=== PATIENT | male | born 1955 | race Caucasian/White ===

== ENCOUNTER → 2016-08-21 | Outpatient (CLI) | payer OTHER ==
[~2016-08-21] MED LIST: IOPAMIDOL (ISOVUE 370) 100 ML BTL IV ONE
--- NOTE | 2016-08-21 12:10 | CT ---
CT Angiography of the Abdomen Clinical Indications: Primary chronic hypertension (I10) Technique: Thinly collimated multidetector helical data were obtained through the abdomen during the arterial phase of contrast enhancement. Images were then transferred to an independent workstation where multiplanar and three-dimensional reconstructions were performed by the interpreting physician. Volume rendering was also performed to better visualize vascular detail. 98 mL of Isovue-370 IV cont rast were administered intravenously by bolus power injection without complication. Dose reduction te chniques were utilized. Findings CT Angiography: The abdominal aorta has a normal contour without aneurysm or dissection. There is ti ny incidental mural thrombus along the left side of the mid abdominal aorta without aneurysm or signi ficant encroachment upon the lumen. There is normal takeoff of the celiac axis and superior mesenteri c artery. A normal single renal artery is seen to the left kidney. There are 3 normal-appearing franco francis supplying the right kidney. The inferior mesenteric artery is normal as well. There is normal b ranching into the common iliac artery bilaterally with a tiny amount of calcified plaque present. CT Abdomen: During arterial phase of imaging, the liver, spleen, bile ducts, pancreas, adrenal gland s and kidneys are normal. Subtle hazy increased density is suspected in the dependent aspect of the g allbladder could be related to sludge or tiny noncalcified gallstones. There is no free fluid or free air. Skeletal system: Vertebral body heights are well-maintained. There is moderate intervertebral disk sp imelda narrowing at L5-S1 with mild facet hypertrophy. Impression: 1. Minimal calcified plaque involving the distal abdominal aorta with small left-sided noncalcified p laque or mural thrombus mid to lower abdominal aorta. 2. Branch vessels off the abdominal aorta are normal in appearance without stenosis or plaque formati on. 3. Single renal artery supplies left kidney with 3 renal arteries supplying the right kidney without stenosis. 4. Possible sludge or tiny noncalcified gallstones within the gallbladder.
== END ==
LOC: CIMAGING 09:22
PROVIDERS: ATTEND Internal Medicine
DX: I70.0 Atherosclerosis of aorta (principal); I10 Essential (primary) hypertension
CPT/HCPCS: 74175-PO; Q9967

== ENCOUNTER 2016-08-30 06:33 | Inpatient (IN) | payer OTHER ==
[2016-08-30] MEDS ORDERED: diphenhydrAMINE 25 MG CAP PO ONE ×2 (06:46→06:59)
[2016-08-30] MEDS ORDERED: FAMOTIDINE 20 MG TAB PO ONE (06:46)
[2016-08-30] MEDS ORDERED: ASPIRIN EC 325 MG TAB PO ONE (06:46)
[2016-08-30] MEDS ORDERED: DIAZEPAM 5 MG TAB PO ONE (06:46)
[2016-08-30] MEDS ORDERED: NS 1,000 ML IV ONE (06:46)
--- NOTE | 2016-08-30 06:55 | CPEKG ---
Heart Rate: 58 RR Interval: 1034 P-R Interval: 172 QRSD Interval: 92 QT Interval: 444 QTC Interval: 437 P [place]: 29 QRS [place]: 20 T Wave [place]: 16 EKG Severity - BORDERLINE ECG - EKG Impression: SINUS RHYTHM EKG Impression: BORDERLINE INFERIOR Q WAVES EKG Impression: MINIMAL ST ELEVATION, ANTERIOR LEADS Electronically Signed By: Chris Silva 30-Aug-2016 09:09:08
[2016-08-30] MEDS ORDERED: DIAZEPAM 5 MG TAB ONE (06:59)
[2016-08-30] MEDS ORDERED: FAMOTIDINE 20 MG TAB ONE (06:59)
[2016-08-30] MEDS ORDERED: ASPIRIN EC 81 MG TAB PO ONE (07:00)
[2016-08-30 07:09] LABS: % IMMATURE GRANULYOCYTES 0.3 % (0.0-1.1); ABSOLUTE IMMATURE GRANULOCYTES 0.01 10^3/uL (0.00-0.10); ADD DIFF? NO; ADD MORPH? NO; ADD SCAN? NO; ATYPICAL LYMPHOCYTE FLAG 10 (0-99); FRAGMENT RBC FLAG 0 (0-99); HEMATOCRIT 46.2 % (40.0-51.0); HEMOGLOBIN 16.5 g/dL (13.7-17.5); LEFT SHIFT FLG 0 (0-99); LIPEMIA HEMOLYSIS FLAG 90 (0-99); MEAN CELL HEMOGLOBIN CONCENTR. 35.7 g/dL (32.4-36.7); MEAN CELL VOLUME 92.4 fL (81.5-99.8); MEAN PLATELET VOLUME 9.9 fL (8.7-11.7); PLATELET CLUMPS FLAG 20 (0-99); PLATELET COUNT 138 10^3/uL (150-400); RED CELL DISTRIBUTION WIDTH 13.2 % (11.5-15.2)
[2016-08-30 07:18] LABS: INR 0.99 (0.83-1.16)
[2016-08-30 07:36] LABS: ANION GAP 11 mEq/L (8-16); CARBON DIOXIDE 22 mEq/l (22-31); CHLORIDE 109 mEq/L (97-110); CHOLESTEROL 188 mg/dL (140-220); GLOMERULAR FILTRATION RATE > 60; GLUCOSE 134 mg/dL (70-100); HIGH DENSITY LIPOPROTEIN 33 mg/dL (40-65); LDL/HDL RATIO 2.67 RATIO (1.00-3.64); LOW DENSITY LIPOPROTEIN 88 mg/dL (80-100); MAGNESIUM 1.9 mg/dL (1.6-2.3); NON-HIGH DENSITY LIPOPROTEIN 155 mg/dL (90-129); POTASSIUM 4.5 mEq/L (3.5-5.2); SODIUM 142 mEq/L (134-144); TRIGLYCERIDE 337 mg/dL (40-150); VERY LOW DENSITY LIPOPROTEINS 67 mg/dL (8-25)
[2016-08-30] MEDS ORDERED: LIDOCAINE 1% 30 ML SDV ONE (08:09)
[2016-08-30] MEDS ORDERED: HEPARIN 10,000 UNIT/10 ML MDV ONE (08:10)
[2016-08-30] MEDS ORDERED: VERAPAMIL 5 MG/2 ML VIAL ONE (08:10)
[2016-08-30] MEDS ORDERED: MIDAZOLAM 2 MG/2 ML VIAL ONE ×2 (08:10→09:00)
[2016-08-30] MEDS ORDERED: fentaNYL 100 MCG/2 ML INJ ONE ×2 (08:10→09:00)
[2016-08-30] MEDS ORDERED: IOPAMIDOL (ISOVUE-370) 150 ML BTL IV ONE (08:11)
--- NOTE | 2016-08-30 08:55 | PDDXCAT ---
Diagnostic Cath Note - . Date: 08/30/16 Union Organizer: Pippa Intervention: None Union Organizer: Dr. Rick Das Indication: CCS Class III angina, high-risk exercise treadmill test with ST depression and predictable chest discomfort suggestive of ischemia. *Procedure Access: left wrist Procedure: left heart catheterization, coronary angiography, left ventriculogram *Materials Left Heart Cath size: 5F, 6F Left Heart Cath materials: 5F JL3.5, 5F JR 4.0, 6F JL4.5, pigtail *Findings-Left Heart Catheterization LM: 6 mm in size. Bifurcates into an LAD and circumflex system. No flow- limiting disease is identified in with BRITTA III flow throughout. LAD: There is a proximal LAD obstruction of 85% with BRITTA III flow. There is also a second 80% lesion proximal to the second diagonal takeoff with BRITTA III flow. The LAD extends to and wraps around the apex. LCX: Large vessel, ~4 mm in size proximally. There is a 100% mid left circumflex and obtuse marginal occlusions with BRITTA 0 flow in both of these lesions. There is evidence of left to left collaterals to the distal PDA. There is ultimately BRITTA III flow to the distal left circumflex and distal obtuse marginal via bridging collateral vessels. RCA: Small, weakly co-dominant vessel, ~2 mm in size. There is a 100% right coronary artery occlusion in the proximal vessel with BRITTA 0 flow. There is evidence of bridging right to right collaterals to the mid and distal vessel ( BRITTA III flow to the distal vessel). There is also a subtotal occlusion of an RV branch. EDP: 31 mmHg LVEF: 65% Wall motion: No wall motion abnormalities were identified on LVG. There is mild mitral regurgitation with pressurized injection in the left ventricle. The visualized portion of the thoracic aorta revealed three sinuses of Valsalva. There was no mildred evidence of aneurysm or dissection. *Summary Complications: None Estimated blood loss: <50ml Closure method: TR Band Assessment: Severe [place] vessel and flow-limiting coronary artery disease including 100% obstruction of a small, codominant right coronary artery with BRITTA 0 flow (BRITTA III flow in the distal vessel via bridging right to right collaterals), 100% mid left circumflex and left circumflex obtuse marginal obstructions with BRITTA 0 flow (BRITTA III flow in the distal vessel via left to left collaterals). There is an 85% stenosis of the proximal LAD and an 80% lesion proximal to the second diagonal takeoff (BRITTA III flow throughout). Coronary artery bypass grafting is recommended with KNAPP to the LAD and vein grafts to the left circumflex, left circumflex obtuse marginal and possibly the distal right coronary artery and first diagonal at the surgeon's discretion. Plan: I have ordered a carotid ultrasound as well as an echocardiogram and chest x-ray to be performed prior to bypass surgery. I discussed these findings at length with the patient and his . He will also have a formal consultation with our surgeon to discuss the risk/benefit of a bypass operation.
--- NOTE | 2016-08-30 13:16 | ECHO ---
[id number] + + [address] : : [place] [address] : : [phone] + Adult Echocardiographic Report + -------+ :Name: Saumya SPAULDINGnemo Date: 08/30/2016 11:21 AM : : Hospital Admission Number: [id number] Locati on: [facility]: :: 1955 Gender: Male Height: 76 in : :Age: 61 yrs Race: WH Weight: 274 lb : :Reason For Study: R/O valvular heart disease pre CABG : : BSA: 2.5 meter s2 : :History: No previous : + -------+ MMode/2D Measurements & Calculations IVSd: 1.2 cm RVDd: 3.5 cm FS: 37.8 % LVOT diam: 2.1 cm LVPWd: 1.2 cm LVIDd: 4.5 cm EDV(Teich): LVOT area: LVIDs: 2.8 cm 94.5 ml 3.5 cm2 ESV(Teich): 30.3 ml EF(Teich): 68.0 % LVLd ap4: 9.6 cm SV(MOD-sp4): EDV(MOD-sp4): 47.0 ml 95.0 ml LVLs ap4: 8.1 cm ESV(MOD-sp4): 48.0 ml EF(MOD-sp4): 49.5 % Normal Measurement Values: + + :LVIDd (3.5-5.7cm) IVSd (0.6-1.1cm) LVPWd (0.6-1.1cm) Aortic Root (2.0-3.7cm)Left Atrium (1.5-4.0cm): :LV Vol(d) (76-115ml) LV Vol(s) (29-48ml) Ejec Fraction (50-65%)PV Ugo (0.6- 1.2m/s) TV Ugo (0.4-1.0m/s) : :MV E Ugo (0.8-1.0m/s)MV A Ugo (0.3-1.0m/s)LVOT Ugo (0.7-1.2m/s) Asc Ao Ugo ( 0.9-1.8m/s) : + + Doppler Measurements & Calculations MV E max ugo: MV V2 max: Ao V2 max: AI max ugo: 75.5 cm/sec 85.8 cm/sec 117.1 cm/sec 238.9 cm/sec MV A max ugo: MV max PG: Ao max PG: AI max P.1 cm/sec 2.9 mmHg 5.5 mmHg 22.8 mmHg MV E/A: 1.0 MV V2 mean: Ao mean PG: AI dec slope: MV dec time: 49.1 cm/sec 3.5 mmHg 98.1 cm/sec2 0.27 sec MV mean PG: Ao V2 mean: AI P1/2t: 1.1 mmHg 85.9 cm/sec 713.3 msec MV V2 VTI: 32.9 cm Ao V2 VTI: 29.3 cm MVA(VTI): 2.9 cm2 ARLET(I,D): 3.2 cm2 LV V1 mean PG: MR max ugo: SV(LVOT): 94.5 ml PA V2 max: 2.6 mmHg 429.2 cm/sec 105.1 cm/sec LV V1 mean: MR max PG: PA max P.4 mmHg 74.0 cm/sec 74.2 mmHg LV V1 VTI: 27.4 cm TR max ugo: 211.1 cm/sec TR max P.8 mmHg Left Ventricle The left ventricle is normal in size and function. Proximal septal thickening is noted. Ejection Fraction = 55-60%. Hypokinetic Basal to Mid Anterolateral, Apical septum, Basal Inferior. Right Ventricle The right ventricle is normal in size and function. Atria The left atrial size is normal. Right atrial size is normal. The interatrial septum is intact with no evidence for an atrial septal defect. Mitral Valve The mitral valve is normal in structure and function. There is no mitral valve stenosis. There is mild mitral regurgitation. Tricuspid Valve The tricuspid valve is normal in structure and function. There is no tricuspid stenosis. There is trace tricuspid regurgitation. Aortic Valve The aortic valve is not well visualized. There is no aortic stenosis. Mild aortic regurgitation. Pulmonic Valve The pulmonic valve is not well visualized. There is no pulmonic valvular stenosis. There is no pulmonic valvular regurgitation. Great Vessels The aortic root is normal size. Pericardium/Pleural There is a fat pad seen. Conclusion A complete two-dimensional transthoracic echocardiogram was performed (2D, M-mode, Doppler and color flow Doppler). The study was technically difficult. The left ventricle is normal in size and function. Proximal septal thickening is noted. Ejection Fraction = 55-60%. Hypokinetic Basal to Mid Anterolateral, Apical septum, Basal Inferior There is mild mitral regurgitation. There is trace tricuspid regurgitation. The aortic valve is not well visualized. Mild aortic regurgitation. Final Reading Physician: Vikas Bustillo signed on 08/30/2016 01:14 PM Ordering Physician: Rick Das Performed By: Estela Armenta
[2016-08-30] MEDS ORDERED: MUPIROCIN 2% 22 GM OINT NS ONE (14:36)
--- NOTE | 2016-08-30 15:10 | US ---
Bilateral Duplex Carotid Sonography Clinical Indications: 61-year-old male presenting preoperatively before CABG. The patient has medica lly-controlled hypertension, and a history of heart stents. Rule out hemodynamically significant sten osis. Technique: The cervical portions of the carotid and vertebral arteries were imaged and interrogated by color and pulsed Doppler. Color and spectral Doppler analysis was performed. Cine clips are stored on PACS. Comparison Study: None. Findings: Right Carotid Artery: The common carotid artery, bulb, and internal and external carotid arteries are well-imaged. There is some minimal atherosclerotic plaque at the level of the carotid bulb. The peak systolic velocity in the internal carotid artery is 59 cm/s cm/s, and the internal carotid artery pe ak diastolic velocity is 29 cm/s. The ICA to CCA systolic and diastolic ratios are normal. The right to left ICA systolic ratio is normal. The external carotid artery is patent. Left Carotid Artery: The common carotid artery, bulb, and the internal and external carotid arteries are well-imaged. There is some minimal atherosclerotic plaque at the level of the carotid bulb. The p eak systolic velocity in the internal carotid artery is 62 cm/s, with a peak diastolic velocity 22 cm /s. The ICA to CCA systolic and diastolic ratios are normal. The external carotid artery is patent. Vertebral Arteries: Antegrade flow is shown by pulsed Doppler of each vertebral artery. The peak sys tolic velocity in the right vertebral artery is 42 cm/s, and in the left vertebral artery is 42 cm/s. Impression: 1. Minimal plaque noted at the level of each carotid bulb; however, there is no sonographic evidence of a hemodynamically significant ICA stenosis. 2. Patent, antegrade vertebral arteries. Measurement of carotid stenosis is based on velocity parameters that correlate the residual internal carotid diameter with [place] Symptomatic Carotid Endarterectomy Trial (NASCET) based stenosis levels.
--- NOTE | 2016-08-30 16:04 | DX ---
PA and lateral chest. Clinical History: pre CABG Comparison Study: None available. Findings: Volume loss in the left lower lung is associated with elevation left hemidiaphragm and patc hy central atelectasis or fibrosis below the left hilum. The right lung is clear. Heart size is gemma l. No pleural effusion.. Visualized osseous structures appear normal. Impression: Volume loss and parenchymal scarring, left lower lobe, potentially related to prior infla mmatory disease. No acute process identified. Comparison with prior films would be of benefit as clin ically available..
[2016-08-30] MEDS: MUPIROCIN 2% 22 GM OINT NS SCH (17:44)
[2016-08-30] MEDS ORDERED: CHLORHEXIDINE GLUC HIBICLENS 118 ML BTL TP SCH (21:00)
[2016-08-31] MEDS ORDERED: CHLORHEXIDINE GLUC HIBICLENS 118 ML BTL TP ONE ×2 (04:00→10:59)
[2016-08-31] MEDS ORDERED: NOREPINEPHRINE BITARTRATE 16 MG in NS 250 ML IV ONE (06:00)
[2016-08-31] MEDS ORDERED: PHENYLEPHRINE HCL 50 MG in NS 250 ML IV ONE (06:00)
[2016-08-31] MEDS ORDERED: niCARdipine/NACL 200 ML IV SCH (06:00)
[2016-08-31] MEDS ORDERED: INSULIN REGULAR HUMAN 100 UNIT in NS 100 ML IV ONE (06:00)
[2016-08-31] MEDS ORDERED: AMINOCAPROIC ACID 5 GM/20 ML VIAL IV ONE (06:00)
[2016-08-31] MEDS ORDERED: NS 1,000 ML IV ONE (06:00)
[2016-08-31] MEDS ORDERED: VERAPAMIL 5 MG, NITROGLYCERIN 2.5 MG, HEPARIN 500 UNIT, SODIUM BICARBONATE 0.2 MEQ in L... MISC ONE (06:00)
[2016-08-31] MEDS ORDERED: ceFAZolin 2 GM/DEXTROSE 100 ML IV ONE (06:00)
[2016-08-31] MEDS ORDERED: SODIUM BICARBONATE 20 MEQ, LIDOCAINE 1% 10 ML in NORMOSOL-R 1,000 ML MISC ONE (06:00)
[2016-08-31] MEDS ORDERED: MANNITOL 25% 12.5 GM/50 ML VIAL IV ONE (06:00)
[2016-08-31] MEDS ORDERED: CITRATE DEXTROSE SOLN 500 ML BAG MISC ONE (06:00)
[2016-08-31] MEDS ORDERED: PROTAMINE SULFATE 50 MG/5 ML VIAL IVP ONE (06:36)
[2016-08-31] MEDS ORDERED: AMINOCAPROIC ACID 5 GM/20 ML VIAL ONE (06:36)
[2016-08-31] MEDS ORDERED: CALCIUM CHLORIDE 1 GM/10 ML INJ ONE (06:36)
[2016-08-31] MEDS ORDERED: niCARdipine/NACL/200 ML BAG IV ONE (06:36)
[2016-08-31] MEDS ORDERED: LIDOCAINE 2% 100 MG/5 ML SYR IVP ONE ×2 (06:36→11:34)
[2016-08-31] MEDS ORDERED: POTASSIUM Cl (KCl) 20 MEQ/50 ML BAG IV ONE (06:36)
[2016-08-31] MEDS ORDERED: NA BICARBONATE 50 MEQ/50 ML VIAL ONE (06:36)
[2016-08-31] MEDS ORDERED: ALBUMIN 5% 250 ML BOTTLE IV ONE (06:36)
[2016-08-31] MEDS ORDERED: DOPamine/DEXTROSE/250 ML BAG IV ONE (06:36)
[2016-08-31] MEDS ORDERED: MILRINONE/DEXTROSE/100 ML BAG IV ONE (06:36)
[2016-08-31] MEDS ORDERED: ceFAZolin 1 GM VIAL ONE (06:37)
[2016-08-31] MEDS ORDERED: MAGNESIUM SULFATE 1 GM/2 ML VIAL ONE (06:37)
[2016-08-31] MEDS ORDERED: ADENOSINE 6 MG/2 ML VIAL ONE (06:37)
[2016-08-31] MEDS ORDERED: methylPREDNISolone SOD SUCC 1 GM/8 ML VIAL ONE (06:37)
[2016-08-31] MEDS ORDERED: AMIODARONE HCL 150 MG/3 ML VIAL ONE (06:37)
[2016-08-31] MEDS ORDERED: HEPARIN 10,000 UNIT/10 ML MDV ONE (06:37)
[2016-08-31] MEDS ORDERED: NITROGLYCERIN/DEXTROSE 250 ML IV SCH (08:30)
[2016-08-31] MEDS: MUPIROCIN 2% 22 GM OINT NS SCH ×2 (09:21→20:12)
[2016-08-31] MEDS ORDERED: LIDOCAINE 1% 5 ML SDV ONE (10:39)
[2016-08-31] MEDS ORDERED: CEFAZOLIN 2 GM/DEXTROSE/100 ML BAG IV ONE (10:39)
[2016-08-31] MEDS ORDERED: SKIN ADHESIVE (DERMABOND) 1 EACH TP ONE ×2 (10:49→16:37)
[2016-08-31] MEDS ORDERED: VANCOMYCIN 1 GM VIAL IV ONE (10:50)
[2016-08-31] MEDS ORDERED: PAPAVERINE HCL 60 MG/2 ML SDV ONE (10:51)
[2016-08-31] MEDS ORDERED: PROPOFOL/EMULSION 500 MG/50 ML BOTTLE IV ONE ×2 (11:33→13:49)
[2016-08-31] MEDS ORDERED: REMIFENTANIL HCL 1 MG VIAL ONE ×2 (11:33→13:49)
[2016-08-31] MEDS ORDERED: fentaNYL 250 MCG/5 ML INJ ONE (11:33)
[2016-08-31] MEDS ORDERED: MIDAZOLAM 2 MG/2 ML VIAL ONE (11:34)
[2016-08-31] MEDS ORDERED: DEXMEDETOMIDINE HCL 400 MCG in NS 100 ML IV SCH (12:00)
[2016-08-31] MEDS ORDERED: CITRATE DEXTROSE SOLN 500 ML BAG ONE (12:08)
[2016-08-31] MEDS ORDERED: DEXAMETHASONE 4 MG/ML VIAL ONE (12:27)
[2016-08-31] MEDS ORDERED: ROCURONIUM 50 MG/5 ML VIAL ONE (13:27)
[2016-08-31] MEDS ORDERED: PANTOPRAZOLE SODIUM 40 MG in NS 100 ML IV ONE ×2 (15:00→16:52)
[2016-08-31] MEDS ORDERED: MAGNESIUM SULF 2 GM/WATER 50 ML BAG IV ONE (15:30)
[2016-08-31] MEDS ORDERED: HYDROmorphONE/DILAUDID 2 MG/ML SYR ONE (15:31)
[2016-08-31] MEDS ORDERED: D50W 25 GM/50 ML SYR IVP PRN (16:52)
[2016-08-31] MEDS ORDERED: ACETAMINOPHEN 650 MG SUPP PR PRN (16:52)
[2016-08-31] MEDS ORDERED: POLYETHYLENE GLYCOL 3350 17 GM PKT PO PRN (16:52)
[2016-08-31] MEDS ORDERED: ONDANSETRON DISINTEGRATING 4 MG TAB PO PRN (16:52)
[2016-08-31] MEDS ORDERED: CEPACOL LOZENGE PO PRN (16:52)
[2016-08-31] MEDS ORDERED: MAGNESIUM SULF 2 GM/WATER 50 ML IV ONE (16:52)
[2016-08-31] MEDS ORDERED: SODIUM CL NASAL 45 ML BTL EACHNARE PRN (16:52)
[2016-08-31] MEDS ORDERED: LACTULOSE 20 GM/30 ML UDCUP PO PRN (16:52)
[2016-08-31] MEDS ORDERED: MEPERIDINE 25 MG/ML SYR IVP PRN (16:52)
[2016-08-31] MEDS ORDERED: ONDANSETRON 4 MG/2 ML VIAL IVP PRN (16:52)
[2016-08-31] MEDS ORDERED: METOCLOPRAMIDE 10 MG/2 ML VIAL IVP PRN (16:52)
[2016-08-31] MEDS ORDERED: POTASSIUM Cl (KCl) 50 ML IV PRN (16:52)
[2016-08-31] MEDS ORDERED: PROPOFOL 200 MG/20 ML VIAL ONE (16:57)
[2016-08-31] MEDS ORDERED: ceFAZolin 3 GM in D5W 100 ML IV SCH (17:00)
[2016-08-31] MEDS ORDERED: INSULIN REGULAR HUMAN 100 UNIT in NS 100 ML IV SCH (17:00)
[2016-08-31] MEDS ORDERED: NS 1,000 ML IV SCH (17:00)
--- NOTE | 2016-08-31 17:12 | POSTOPPROG ---
Post Op Note Date of Operation: 08/31/16 Surgeon: Vivek Zaragoza Freight Associate: Pilar GÓMEZ Anesthesia: GET(General Endotracheal) Pre-op Diagnosis: Coronary Artery Disease Post-op Diagnosis: Same Indication: 3 vessel CAD Procedure: CABG x 4 w/ SVG - PL/CX, SVG - RCA, free MICK - OM, KNAPP - LAD Findings: CAD Inf/Abcess present in the surg proc area at time of surgery?: No Complications: None Drains: Other (Torsten x 2 and Chest tube) Specimen(s): None
--- NOTE | 2016-08-31 17:22 | DX ---
Portable Chest, Single View August 31, 2016 History: Status post open heart surgery. Equipment count uncertain. Findings: Postsurgical changes are seen of open heart surgery, with sternotomy wires in the midline. ET tube and right IJ tube appear in good position. Bilateral chest tubes. Wires are seen overlyin g the abdomen which are the temporary pacer wires. No evidence for a radiopaque foreign body to dain marty clamp or instrument. Mild atelectasis is seen in both lungs and peribronchial wall thickening. The heart size is enlarged. Impression: No evidence for a radiopaque object to indicate piece of equipment or clamp. Life suppo rt tubes and lines, as above. Results called to the OR nurse on August 31, 2016 at 1703 hours. E:JMI/jaylan
[2016-08-31 17:41] LABS: BASE EXCESS -3.3 mEq/L (-2.5-2.5); BICARBONATE 21 mEq/L (22-26); MEASURED OXYGEN SATURATION 96 % (92-95); PCO2 37 mmHg (34-38); PO2 86 mmHg (65-75); TCO2 22 mEq/L (23-27)
[2016-08-31 17:44] LABS: O2 CONCENTRATIION 100 % (0-100); P/F RATIO 86 RATIO; PATIENT RATE 12; PRESSURE SUPPORT 7; SIMV YES
[2016-08-31] MEDS ORDERED: ceFAZolin 2 GM in D5W 100 ML IV SCH ×2 (18:00→18:30)
[2016-08-31] MEDS: fentaNYL 100 MCG/2 ML INJ IVP PRN ×3 (18:38→21:36)
[2016-08-31] MEDS: ALBUMIN 5% 250 ML IV PRN (19:27)
[2016-08-31] MEDS: ATORVASTATIN CALCIUM 10 MG TAB PO SCH (20:08)
[2016-08-31] MEDS: FAMOTIDINE 20 MG/NACL 50 ML IV SCH (20:11)
[2016-08-31] MEDS: CHLORHEXIDINE GLUCONATE 15 ML UDL PO SCH (20:12)
[2016-08-31] MEDS ORDERED: MUPIROCIN 2% 22 GM OINT NS SCH (21:00)
[2016-08-31] MEDS: ceFAZolin 2 GM in D5W 100 ML IV SCH (21:05)
--- NOTE | 2016-08-31 21:40 | GOP ---
[f rep st] OPERATIVE REPORT DATE OF OPERATION: 08/31/2016 SURGEON: Vivek Zaragoza MD LOAN PROCESSOR: Cheryl Shafer ANESTHESIA: General endotracheal. PREOPERATIVE DIAGNOSIS: Severe 3-vessel coronary artery disease. POSTOPERATIVE DIAGNOSIS: Severe 3-vessel coronary artery disease. PROCEDURE PERFORMED: Four-vessel coronary artery bypass with saphenous vein grafts to the right john nary artery and the posterolateral branch of the circumflex artery, free right internal mammary arter y bypass to the obtuse marginal branch of the circumflex artery, and left internal mammary artery byp ass to left anterior descending artery. FINDINGS: The heart contracted well on GIL. The sternum was normal. Left and right internal mammar y arteries were of adequate quality and caliber. The saphenous vein from the left lower leg was of a dequate quality and caliber. The right coronary artery was 1.5 mm and of good quality. The posterol ateral branch of the circumflex artery was 2 mm and of good quality. The obtuse marginal was 1.5 mm and of good quality, and the LAD was 2.25 mm and of good quality. INDICATIONS: A 61-year-old male with severe hypertension who has had exertional angina ongoing for t he last few months. He underwent cardiac catheterization that showed severe coronary artery disease with occlusion of the right coronary artery and the circumflex artery, and high grade lesion in the L AD. Is referred for surgery. DESCRIPTION OF PROCEDURE: Consent was signed. The patient was taken to the operating room where a c entral line and arterial lines were inserted. Gentle endotracheal anesthesia was administered. GIL was performed. The patient was prepped and draped. The saphenous vein was harvested from the left l ower leg using intervascular harvesting system. Medial sternotomy was performed. The left and right internal mammary arteries were mobilized. Pursestrings were placed. The patient was heparinized, c annulated and placed on bypass. Body temperature was kept normothermic, and the aorta was crossclamp ed. Cold potassium containing blood cardioplegia was infused into the aortic root and reinfused afte r each distal anastomosis. Saphenous vein grafts were placed to the fairly diminutive right coronary artery and to the posterolateral branch of the circumflex artery. The right internal mammary artery was taken down as a free graft and anastomosed to the obtuse marginal, and the pedicle at the left i nternal mammary artery to the distal left anterior descending artery. The left pericardium was incis ed. Cross-clamp was removed. The proximal end of the vein grafts were anastomosed with 4.8 mm punch holes on the ascending aorta and the proximal end of the mammary graft to a 4 mm punch hole. The gr afts were de-aired. All anastomoses were checked and found to be hemostatic. Radiopaque rings were placed as were ventricular pacemaker wires. The heart was spontaneously converted to a normal sinus rhythm. 1 g of calcium chloride was administered, ventilation was started, and the patient was then easily weaned off cardiopulmonary bypass. Hemodynamics was excellent. Protamine sulfate was adminis tered. Hemostasis was obtained. The patient was decannulated. The mediastinal flap was closed. Bl katya drains were placed in both pleural spaces, and a straight tube in the mediastinum of the sternum was closed with four #5 stainless steel wires and 2 sternal bands, and the remainder of the chest wa s closed in the usual fashion. Dressings were applied. COMPLICATIONS: None. POSTOPERATIVE CONDITION: Stable. /[id number]/MODL
[2016-09-01] MEDS: oxyCODONE IR 5 MG TAB PO PRN ×4 (00:59→21:51)
[2016-09-01] MEDS: fentaNYL 100 MCG/2 ML INJ IVP PRN ×2 (01:00→04:17)
[2016-09-01 02:57] LABS: HEMATOCRIT 40.3 % (40.0-51.0); HEMOGLOBIN 14.2 g/dL (13.7-17.5); MEAN CELL HEMOGLOBIN 32.9 pg (27.9-34.1); MEAN CELL HEMOGLOBIN CONCENTR. 35.2 g/dL (32.4-36.7); MEAN CELL VOLUME 93.5 fL (81.5-99.8); RED BLOOD CELL COUNT 4.31 10^6/uL (4.40-6.38); RED CELL DISTRIBUTION WIDTH 13.4 % (11.5-15.2)
[2016-09-01] MEDS: ceFAZolin 2 GM in D5W 100 ML IV SCH ×3 (05:26→22:22)
[2016-09-01 05:40] LABS: % IMMATURE GRANULYOCYTES 0.3 % (0.0-1.1); ABSOLUTE IMMATURE GRANULOCYTES 0.03 10^3/uL (0.00-0.10); ADD DIFF? NO; ADD MORPH? NO; ADD SCAN? NO; ATYPICAL LYMPHOCYTE FLAG 0 (0-99); FRAGMENT RBC FLAG 0 (0-99); HEMATOCRIT 39.3 % (40.0-51.0); LEFT SHIFT FLG 40 (0-99); LIPEMIA HEMOLYSIS FLAG 90 (0-99); MEAN CELL HEMOGLOBIN 33.6 pg (27.9-34.1); MEAN CELL HEMOGLOBIN CONCENTR. 35.6 g/dL (32.4-36.7); MEAN CELL VOLUME 94.2 fL (81.5-99.8); MEAN PLATELET VOLUME 10.4 fL (8.7-11.7); PLATELET CLUMPS FLAG 0 (0-99); PLATELET COUNT 105 10^3/uL (150-400); RED BLOOD CELL COUNT 4.17 10^6/uL (4.40-6.38); RED CELL DISTRIBUTION WIDTH 13.6 % (11.5-15.2)
[2016-09-01 05:55] LABS: ANION GAP 7 mEq/L (8-16); CALCIUM 8.5 mg/dL (8.5-10.4); CARBON DIOXIDE 22 mEq/l (22-31); CHLORIDE 109 mEq/L (97-110); GLOMERULAR FILTRATION RATE > 60; GLUCOSE 126 mg/dL (70-100); POTASSIUM 4.9 mEq/L (3.5-5.2); SODIUM 138 mEq/L (134-144)
[2016-09-01] MEDS: HEPARIN 5,000 UNIT/0.5 ML SYR SC SCH ×3 (06:02→21:47)
[2016-09-01] MEDS: ALBUMIN 5% 250 ML IV PRN (06:47)
[2016-09-01] MEDS: FAMOTIDINE 20 MG/NACL 50 ML IV SCH (07:35)
[2016-09-01] MEDS: HYDROCODONE/APAP 5/325 TAB PO PRN ×3 (07:35→23:14)
--- NOTE | 2016-09-01 07:35 | DX ---
Portable Chest, 6:24 AM History: Follow-up open heart surgery Comparison: Yesterday Findings: The patient has been extubated and an NG tube has been removed. There is some postextubatio n atelectasis at the left base. Haziness in the left costophrenic gutter may represent a small effusi on. Interstitial pulmonary edema has resolved. A right chest tube and a mediastinal drain remain in p lace. There is no pneumothorax heart size is stable. Pulmonary vascularity is less plethoric. Gaseous distention of the stomach elevates the left hemidiaphragm. Impression: 1. Improvement in CHF 2. Left basilar postextubation atelectasis. 3. Gaseous distention of the stomach elevating the left hemidiaphragm.
[2016-09-01] MEDS: ASPIRIN EC 81 MG TAB PO SCH (07:36)
[2016-09-01] MEDS: CHLORHEXIDINE GLUCONATE 15 ML UDL PO SCH (07:39)
--- NOTE | 2016-09-01 08:24 | SOAPPROG ---
SOAP Progress Note Assessment/Plan: Assessment: POD#1 CABG x 4 (KNAPP-LAD, free MICK-OM, SV-RCA, SV-PLC) Sx CAD w preserved LV systolic fx - s/p CABG with 2 arterial grafts. Stable early postop course. No vasoactive support, arrhythmia, tachycardia or backup pacing. No significant volume overload. Secondary prevention w ASA, BB as tolerated, and statin when eating well. Acute expected blood loss anemia - Stable. No transfusions required. VTE prophylaxis with SQ hep. Stress hyperglycemia - Preop A1c of 6%. Postop hyperglycemia managed with low dose insulin gtt. Transition to basal/SSI planned. IM consult if correctional needs persist beyond a few days. HTN - Home management with BB and ARB. Resumption in staggered fashion as allowed by HR, BP and stability of renal fx. BPH w LUTS of straining and nocturia - Asx on Rapaflo. To self-administer home supply. Close monitoring post sparrow removal. Plan: Routine POD#1 orders re lines, drains, orals and mobility. Start metoprolol tartrate 25 mg BID tonight. Glargine 10u SQ x 1 to facilitate wean off insulin gtt. Tx to PCU later this am. 09/01/16 08:20 Subjective: Doing ok. Satisfactory analgesia. Tolerating orals. Able to sleep a little. Objective: Vital Signs Temp Pulse Resp BP Pulse Ox 37.4 C 78 14 102/60 96 09/01/16 06:00 09/01/16 06:00 09/01/16 06:00 09/01/16 06:00 09/01/16 06:00 Laboratory Results 09/01/16 05:25 09/01/16 05:25 08/31/16 09/01/16 09/02/16 05:59 05:59 05:59 Intake Total 400 1666 250 Output Total 2295 180 Balance 400 -629 70 PT 13.0 SEC (12.0-15.0) 08/30/16 07:00 INR 0.99 (0.83-1.16) 08/30/16 07:00 Extubated last night without incident. Modest suppl O2 needs. Stable HR, rhythm and BP. BP cuff correlating well w bryan. No significant CTOP. CXR-> No pulm vasc congestion, no PTX, mild bibasilar atelectasis, abundant gastric air. Labs ok. Insulin gtt at 4u/h. Physical Exam - Physical Exam General Appearance: alert, no apparent distress Respiratory: lungs clear (grossly), other (Ant mediastinal CT and pl blakes x 2 to dedicated pleurovacs. Serosang drainage. No AL.) Cardiac/Chest: regular rate, rhythm, other (Sternotomy and LLE venotomy CDI. Vwires intact) Abdomen: non-tender, soft Skin: warm/dry Extremities: swelling (1+ generalized) ICD10 Worksheet Patient Problems: Problems Problem Status Diagnosed Acute blood loss anemia Acute Benign essential HTN Acute CAD, multiple vessel Acute Crescendo angina Acute Dyslipidemia Acute S/P CABG x 4 Acute 08/31/16
[2016-09-01] MEDS ORDERED: INSULIN GLARGINE 100 UNITS/ML SYRINGE SC ONE (09:00)
[2016-09-01] MEDS ORDERED: FAMOTIDINE 20 MG TAB PO SCH ×2 (09:00)
[2016-09-01] MEDS ORDERED: PANTOPRAZOLE SODIUM 40 MG TAB PO SCH (09:00)
[2016-09-01] MEDS ORDERED: fentaNYL 50 MCG PATCH TD ONE (09:00)
[2016-09-01] MEDS: MUPIROCIN 2% 22 GM OINT NS SCH ×2 (09:48→20:21)
[2016-09-01] MEDS ORDERED: fentaNYL 100 MCG/2 ML INJ IVP PRN (10:00)
--- NOTE | 2016-09-01 10:35 | SOAPPROG ---
SOAP Progress Note Assessment/Plan: Assessment: Plan: Subjective: Afebrile VSS Good UO Minimal CT out and mediastinal tube removed Hct 38% BMP nl Up in chair A and O Good pain control Lungs clear Cor RRR +rub Stable postop. Transfer. Objective: Vital Signs Temp Pulse Resp BP Pulse Ox 37.4 C 78 14 102/60 96 09/01/16 06:00 09/01/16 06:00 09/01/16 06:00 09/01/16 06:00 09/01/16 06:00 Laboratory Results 09/01/16 05:25 09/01/16 05:25 08/31/16 09/01/16 09/02/16 05:59 05:59 05:59 Intake Total 400 1666 250 Output Total 2295 530 Balance 400 -629 -280 PT 13.0 SEC (12.0-15.0) 08/30/16 07:00 INR 0.99 (0.83-1.16) 08/30/16 07:00 ICD10 Worksheet Patient Problems: Problems Problem Status Diagnosed Acute blood loss anemia Acute Benign essential HTN Acute CAD, multiple vessel Acute Crescendo angina Acute Dyslipidemia Acute S/P CABG x 4 Acute 08/31/16
--- NOTE | 2016-09-01 12:30 | DX ---
Portable Chest, 12:13 History: Follow-up open heart surgery, left lower lobe atelectasis, follow-up intermittent air leak Comparison: Earlier in the day at 6:24 AM Findings: Gaseous distention of the stomach elevating the left hemidiaphragm and left lower lobe retr ocardiac atelectasis remain. There is no left pneumothorax. Bilateral chest tubes and a right jugular venous catheter remain in place. Impression: Stable x5 hours.
[2016-09-01 13:08] LABS: POTASSIUM 4.6 mEq/L (3.5-5.2)
[2016-09-01] MEDS: INSULIN LISPRO 100 UNIT/ML SC SCH (17:07)
[2016-09-01] MEDS: SENNOSIDES/DOCUSATE SODIUM TAB PO SCH (20:16)
[2016-09-01] MEDS: METOPROLOL TARTRATE 25 MG TAB PO SCH ×2 (20:19→23:46)
[2016-09-02] MEDS: oxyCODONE IR 5 MG TAB PO PRN ×2 (03:46→18:12)
[2016-09-02 03:59] LABS: % IMMATURE GRANULYOCYTES 0.5 % (0.0-1.1); ABSOLUTE IMMATURE GRANULOCYTES 0.05 10^3/uL (0.00-0.10); ADD DIFF? NO; ADD MORPH? NO; ADD SCAN? NO; ATYPICAL LYMPHOCYTE FLAG 0 (0-99); FRAGMENT RBC FLAG 0 (0-99); HEMATOCRIT 34.9 % (40.0-51.0); LEFT SHIFT FLG 20 (0-99); LIPEMIA HEMOLYSIS FLAG 90 (0-99); MEAN CELL HEMOGLOBIN 33.6 pg (27.9-34.1); MEAN CELL HEMOGLOBIN CONCENTR. 34.4 g/dL (32.4-36.7); MEAN CELL VOLUME 97.8 fL (81.5-99.8); MEAN PLATELET VOLUME 10.2 fL (8.7-11.7); PLATELET CLUMPS FLAG 20 (0-99); PLATELET COUNT 98 10^3/uL (150-400); RED BLOOD CELL COUNT 3.57 10^6/uL (4.40-6.38)
[2016-09-02 04:30] LABS: ANION GAP 6 mEq/L (8-16); CALCIUM 8.9 mg/dL (8.5-10.4); CARBON DIOXIDE 25 mEq/l (22-31); CHLORIDE 103 mEq/L (97-110); CREATININE 1.3 mg/dL (0.7-1.3); GLOMERULAR FILTRATION RATE 56; GLUCOSE 142 mg/dL (70-100); POTASSIUM 4.9 mEq/L (3.5-5.2); SODIUM 134 mEq/L (134-144)
[2016-09-02] MEDS ORDERED: AMIODARONE A.FIB-LOAD DOSE(ORDER 1/3) IV ONE (05:00)
[2016-09-02] MEDS ORDERED: AMIODARONE A.FIB-6HR INFSN (ORDER 2/3) IV ONE (05:00)
[2016-09-02] MEDS ORDERED: AMIODARONE A.FIB-18HR INFSN (ORDER 3/3) IV ONE ×2 (05:00→11:00)
[2016-09-02] MEDS: ceFAZolin 2 GM in D5W 100 ML IV SCH ×2 (05:17→05:25)
[2016-09-02] MEDS: HEPARIN 5,000 UNIT/0.5 ML SYR SC SCH (05:25)
--- NOTE | 2016-09-02 08:35 | DX ---
Portable AP chest. 09/02/2016At 6:20 AM History: Post Op Open Heart Daily while in ICU Comparison study: August 31, 2016 Findings: Left hemidiaphragm remains elevated, and there is persistent left lower lobe atelectasis. M inimal patchy atelectasis, right lung. Right chest tube without pneumothorax. Median sternotomy with moderate cardiac enlargement. Right-sided jugular central catheter is stable. Impression: Bilateral lower lobe atelectasis. Elevated left hemidiaphragm. Status post chest surgery.
--- NOTE | 2016-09-02 09:08 | SOAPPROG ---
SOAP Progress Note Assessment/Plan: Assessment: POD#2 CABG x 4 (KNAPP-LAD, free MICK-OM, SV-RCA, SV-PLC) Sx CAD w preserved LV systolic fx - s/p CABG with 2 arterial grafts. Stable early postop course. No vasoactive support, arrhythmia, tachycardia or backup pacing. No significant volume overload. Secondary prevention w ASA, BB as tolerated, and statin when eating well. Postoperative atrial fibrillation - with RVR. Asx. Started on amiodarone as per protocol. Rates now variable. Sufficient BP to tolerate adjunctive BB. Consider NOAC if persists > 24h. Acute expected blood loss anemia - Stable. No transfusions required. Care with VTE prophylaxis while platelets suppressed. Stress hyperglycemia - Preop A1c of 6%. Postop hyperglycemia managed with low dose insulin gtt, transitioning to basal/SSI. Now only on SSI. No correctional needs. Will suspend monitoring. HTN - Home management with BB and ARB. Resumption in staggered fashion as allowed by HR, BP and stability of renal fx. BPH w LUTS of straining and nocturia - Asx on Rapaflo. Home dose restarted. No voiding difficulties post sparrow removal. Plan: Cont IV Amio. Cont metoprolol tartrate 25 mg BID w usual hold parameters. NS bolus prn SBP < 90. Stop SSI. Reduce duragesic patch to 25 mcg. Pleurovac to WS. Consider Vwire and chest tube removal tomorrow. 09/01/16 08:20 Subjective: Sleep interrupted after development of Afib. Now groggy and having a hard time keeping eyes open. Comfortable from a pain standpoint. Intermittent Rt pleuritic pains when getting up to move. Eating ok. +flatus. Several voids without difficulty. Objective: Vital Signs Temp Pulse Resp BP Pulse Ox 36.6 C 109 H 16 93/66 L 92 09/02/16 08:00 09/02/16 08:00 09/02/16 08:00 09/02/16 08:00 09/02/16 08:00 Laboratory Results 09/02/16 03:50 09/02/16 03:50 09/01/16 09/02/16 09/03/16 05:59 05:59 05:59 Intake Total 1668 5708 Output Total 1023 3436 Balance -629 1902 PT 13.0 SEC (12.0-15.0) 08/30/16 07:00 INR 0.99 (0.83-1.16) 08/30/16 07:00 Left pleural tube converted from bulb suction to pleurovac for intermittent air leak. No ongoing leak. CXR neg for PTX. Onset of AF w RVR ~4am. Asx. No overt hypotension. VVR 100s-130s on Amio and first dose oral BB. Stable suppl O2 req and lytes. Today's CXR-> No PTX or pulm vasc congestion. Bibasilar atelectasis L>R. CTOP yet to thin but quantity dissipating. H/H ok. Physical Exam - Physical Exam General Appearance: no apparent distress, other (Pinpoint pupils. Sleepy, struggling to stay alert, but able to answer appropriately and follow commands.) Respiratory: lungs clear, other (rt guille to bulb suction, serosang drainage; left guille to pleurovac, serosang drainage, min tidal, no air leak) Cardiac/Chest: tachycardia, irregularly irregular, other (Sternum grossly stable. Sternotomy and LLE venotomy CDI. V wire intact) Abdomen: normal bowel sounds, non-tender, soft Skin: warm/dry Extremities: swelling (1+ generalized) ICD10 Worksheet Patient Problems: Problems Problem Status Diagnosed Acute blood loss anemia Acute Benign essential HTN Acute CAD, multiple vessel Acute Crescendo angina Acute Dyslipidemia Acute S/P CABG x 4 Acute 08/31/16
[2016-09-02] MEDS: SENNOSIDES/DOCUSATE SODIUM TAB PO SCH ×2 (10:00→20:07)
[2016-09-02] MEDS: FAMOTIDINE 20 MG TAB PO SCH (10:00)
[2016-09-02] MEDS: METOPROLOL TARTRATE 25 MG TAB PO SCH ×2 (10:00→23:27)
[2016-09-02] MEDS: ASPIRIN EC 81 MG TAB PO SCH (10:00)
[2016-09-02] MEDS ORDERED: NS 500 ML IV ONE (10:00)
[2016-09-02] MEDS ORDERED: fentaNYL 25 MCG PATCH TD SCH (10:00)
[2016-09-02] MEDS: MULTIVITAMINS 1 EACH TAB PO SCH (10:03)
[2016-09-02] MEDS: POLYETHYLENE GLYCOL 3350 17 GM PKT PO SCH ×2 (10:05→11:15)
[2016-09-02] MEDS: INSULIN LISPRO 100 UNIT/ML SC SCH (11:39)
[2016-09-02] MEDS: HYDROCODONE/APAP 5/325 TAB PO PRN ×2 (15:35→22:07)
[2016-09-02] MEDS: ATORVASTATIN CALCIUM 10 MG TAB PO SCH (22:08)
[2016-09-03] MEDS: oxyCODONE IR 5 MG TAB PO PRN ×2 (01:30→21:58)
[2016-09-03 05:40] LABS: ANION GAP 6 mEq/L (8-16); CALCIUM 8.8 mg/dL (8.5-10.4); CARBON DIOXIDE 25 mEq/l (22-31); CHLORIDE 103 mEq/L (97-110); CREATININE 1.1 mg/dL (0.7-1.3); GLOMERULAR FILTRATION RATE > 60; GLUCOSE 143 mg/dL (70-100); POTASSIUM 4.5 mEq/L (3.5-5.2); SODIUM 134 mEq/L (134-144)
[2016-09-03] MEDS: HYDROCODONE/APAP 5/325 TAB PO PRN ×3 (07:05→16:50)
[2016-09-03] MEDS: POLYETHYLENE GLYCOL 3350 17 GM PKT PO SCH (08:30)
[2016-09-03] MEDS: ASPIRIN EC 81 MG TAB PO SCH (08:30)
[2016-09-03] MEDS: FAMOTIDINE 20 MG TAB PO SCH (08:30)
[2016-09-03] MEDS: MULTIVITAMINS 1 EACH TAB PO SCH (08:31)
[2016-09-03] MEDS: METOPROLOL TARTRATE 25 MG TAB PO SCH (08:31)
[2016-09-03] MEDS: SENNOSIDES/DOCUSATE SODIUM TAB PO SCH ×2 (08:31→20:00)
[2016-09-03] MEDS ORDERED: AMIODARONE HCL 200 MG TAB PO SCH (09:00)
[2016-09-03] MEDS ORDERED: METOPROLOL TARTRATE 25 MG TAB PO SCH ×3 (09:30→21:00)
--- NOTE | 2016-09-03 09:32 | SOAPPROG ---
SOAP Progress Note Assessment/Plan: Assessment: POD#3 CABG x 4 (KNAPP-LAD, free MICK-OM, SV-RCA, SV-PLC) Sx CAD w preserved LV systolic fx - s/p CABG with 2 arterial grafts. Stable early postop course. No vasoactive support, arrhythmia, tachycardia or backup pacing. Secondary prevention w ASA, BB as tolerated, and statin when eating well. - All tubes/wires out this AM - Gain of over 10 lbs since admission - Lasix 40 mg IV QD Postoperative atrial fibrillation - with RVR. Asx. - Amiodarone dose increased to 400 BID, Metoprolol started at 12.5 BID - Start Lovenox 30 mg BID for thromboprophylaxis - Coumadin x 5mg tonight for INR goal 2-3, duration TBD as per rhythm Acute expected blood loss anemia - Stable. No transfusions required. Stress hyperglycemia - Preop A1c of 6%. Postop hyperglycemia managed with low dose insulin gtt, transitioning to basal/SSI. Now only on SSI. No correctional needs. Will suspend monitoring. HTN - Home management with BB and ARB. Resumption in staggered fashion as allowed by HR, BP and stability of renal fx. BPH w LUTS of straining and nocturia - Asx on Rapaflo. Home dose restarted. No voiding difficulties post sparrow removal. Subjective: Pain well-controlled. Denies CP/SOB. Stomach feels bloated. Good appetite. Denies N/V. Objective: Vital Signs Temp Pulse Resp BP Pulse Ox 36.6 C 108 H 14 95/59 L 95 09/03/16 08:15 09/03/16 08:15 09/03/16 08:15 09/03/16 08:18 09/03/16 08:15 Laboratory Results 09/02/16 03:50 09/03/16 05:10 09/02/16 09/03/16 09/04/16 05:59 05:59 05:59 Intake Total 3378 1577 Output Total 1476 1585 Balance 1902 -8 PT 13.0 SEC (12.0-15.0) 08/30/16 07:00 INR 0.99 (0.83-1.16) 08/30/16 07:00 Physical Exam - Physical Exam General Appearance: WD/WN, alert, no apparent distress EENT: No scleral icterus (R), No scleral icterus (L) Neck: normal inspection Respiratory: lungs clear, No respiratory distress Cardiac/Chest: irregularly irregular Abdomen: non-tender, soft, distended Skin: normal color, warm/dry Extremities: pedal edema (Trace edema b/L ) Neuro/Psych: no motor/sensory deficits, alert, normal mood/affect, oriented x 3 ICD10 Worksheet Patient Problems: Problems Problem Status Diagnosed Acute blood loss anemia Acute Benign essential HTN Acute CAD, multiple vessel Acute Crescendo angina Acute Dyslipidemia Acute Postoperative atrial fibrillation Acute S/P CABG x 4 Acute 08/31/16
[2016-09-03] MEDS ORDERED: AMIODARONE HCL 200 MG TAB PO ONE (10:52)
--- NOTE | 2016-09-03 10:52 | SOAPPROG ---
SOAP Progress Note Assessment/Plan: Assessment: Plan: Subjective: Afebrile Afib [address] out minimal - dc Weight 14lb> preop Minimal pain Lungs clear Cor irreg w/o m Wound clean Plan - increase Amio, start coumadin/lovenox, diurese, dc tubes Objective: Vital Signs Temp Pulse Resp BP Pulse Ox 36.6 C 108 H 14 95/59 L 95 09/03/16 08:15 09/03/16 08:15 09/03/16 08:15 09/03/16 08:18 09/03/16 08:15 Laboratory Results 09/02/16 03:50 09/03/16 05:10 09/02/16 09/03/16 09/04/16 05:59 05:59 05:59 Intake Total 3378 1577 Output Total 1476 1585 Balance 1902 -8 PT 13.0 SEC (12.0-15.0) 08/30/16 07:00 INR 0.99 (0.83-1.16) 08/30/16 07:00 ICD10 Worksheet Patient Problems: Problems Problem Status Diagnosed Acute blood loss anemia Acute Benign essential HTN Acute CAD, multiple vessel Acute Crescendo angina Acute Dyslipidemia Acute Postoperative atrial fibrillation Acute S/P CABG x 4 Acute 08/31/16
[2016-09-03] MEDS ORDERED: FUROSEMIDE 40 MG/4 ML VIAL IVP SCH (11:00)
[2016-09-03] MEDS: ENOXAPARIN 30 MG/0.3 ML SYR SC SCH ×2 (11:27→20:02)
[2016-09-03] MEDS ORDERED: WARFARIN SODIUM 5 MG TAB PO ONE (16:00)
[2016-09-03] MEDS: ATORVASTATIN CALCIUM 10 MG TAB PO SCH (20:02)
[2016-09-03] MEDS: AMIODARONE HCL 200 MG TAB PO SCH (20:02)
[2016-09-03] MEDS ORDERED: NON-FORMULARY NEW DRUG (Simvastatin [Simvastatin] 20 MG) PO SCH (21:00)
[2016-09-04] MEDS: oxyCODONE IR 5 MG TAB PO PRN ×2 (00:57→20:13)
[2016-09-04] MEDS: HYDROCODONE/APAP 5/325 TAB PO PRN ×3 (06:10→18:32)
[2016-09-04 06:35] LABS: INR 1.24 (0.83-1.16); PROTIME(PATIENT) 15.6 SEC (12.0-15.0)
[2016-09-04 06:57] LABS: POTASSIUM 4.3 mEq/L (3.5-5.2)
--- NOTE | 2016-09-04 07:10 | SOAPPROG ---
SOAP Progress Note Assessment/Plan: Assessment: POD#4 CABG x 4 (KNAPP-LAD, free MICK-OM, SV-RCA, SV-PLC) Sx CAD w preserved LV systolic fx - s/p CABG with 2 arterial grafts. Stable early postop course. No vasoactive support, arrhythmia, tachycardia or backup pacing. Secondary prevention w ASA, BB,statin. - Increase Lasix to 80 mg IV this AM as no significant diuresis achieved on 40 mg IV Postoperative atrial fibrillation - with RVR. Asx. - Amiodarone/metoprolol - Coumadin for INR goal 2-3 with Lovenox SQ bridge for thromboprophylaxis Acute expected blood loss anemia - Stable. No transfusions required. Stress hyperglycemia - Preop A1c of 6%. Postop hyperglycemia managed with low dose insulin gtt/SSI. Will suspend monitoring. HTN - Home management with BB and ARB. Resumption in staggered fashion as allowed by HR, BP and stability of renal fx. BPH w LUTS of straining and nocturia - Asx on Rapaflo. Home dose restarted. No voiding difficulties post sparrow removal. Subjective: Denies N/V/CP/SOb/abdominal pain. +flatus/-BM. Objective: Vital Signs Temp Pulse Resp BP Pulse Ox 36.8 C 123 H 22 H 107/78 90 L 09/03/16 23:56 09/03/16 23:56 09/03/16 23:56 09/03/16 23:56 09/03/16 23:56 Laboratory Results 09/02/16 03:50 09/04/16 06:00 09/03/16 09/04/16 09/05/16 05:59 05:59 05:59 Intake Total 1577 710 Output Total 1585 1025 Balance -8 -315 PT 15.6 SEC (12.0-15.0) H 09/04/16 06:00 INR 1.24 (0.83-1.16) H 09/04/16 06:00 Physical Exam - Physical Exam General Appearance: WD/WN, alert, no apparent distress EENT: No scleral icterus (R), No scleral icterus (L) Neck: normal inspection Respiratory: lungs clear, normal breath sounds Cardiac/Chest: irregularly irregular Abdomen: non-tender, soft, No distended Skin: normal color, warm/dry Extremities: pedal edema (+2 b/l LE) Neuro/Psych: no motor/sensory deficits, alert, normal mood/affect, oriented x 3 ICD10 Worksheet Patient Problems: Problems Problem Status Onset Acute blood loss anemia Acute Benign essential HTN Acute CAD, multiple vessel Acute Crescendo angina Acute Dyslipidemia Acute Postoperative atrial fibrillation Acute S/P CABG x 4 Acute 08/31/16
[2016-09-04] MEDS: MAGNESIUM HYDROXIDE 30 ML UDCUP PO PRN (07:44)
[2016-09-04] MEDS ORDERED: FUROSEMIDE 100 MG/10 ML VIAL IVP ONE (08:22)
[2016-09-04] MEDS: MULTIVITAMINS 1 EACH TAB PO SCH (09:15)
[2016-09-04] MEDS: FAMOTIDINE 20 MG TAB PO SCH (09:15)
[2016-09-04] MEDS: METOPROLOL TARTRATE 25 MG TAB PO SCH ×2 (09:15→20:13)
[2016-09-04] MEDS: AMIODARONE HCL 200 MG TAB PO SCH ×2 (09:16→20:13)
[2016-09-04] MEDS: ASPIRIN EC 81 MG TAB PO SCH (09:16)
[2016-09-04] MEDS: ENOXAPARIN 30 MG/0.3 ML SYR SC SCH ×2 (09:25→20:42)
[2016-09-04] MEDS: BISACODYL 10 MG SUPP PR PRN (10:47)
[2016-09-04] MEDS: POLYETHYLENE GLYCOL 3350 17 GM PKT PO SCH (13:57)
[2016-09-04] MEDS: SENNOSIDES/DOCUSATE SODIUM TAB PO SCH ×2 (13:58→20:42)
[2016-09-04] MEDS ORDERED: WARFARIN SODIUM 5 MG TAB PO ONE (16:00)
[2016-09-04 17:13] LABS: ANION GAP 8 mEq/L (8-16); CALCIUM 9.4 mg/dL (8.5-10.4); CARBON DIOXIDE 29 mEq/l (22-31); CHLORIDE 95 mEq/L (97-110); CREATININE 1.2 mg/dL (0.7-1.3); GLOMERULAR FILTRATION RATE > 60; GLUCOSE 139 mg/dL (70-100); POTASSIUM 4.1 mEq/L (3.5-5.2); SODIUM 132 mEq/L (134-144)
[2016-09-04] MEDS: ATORVASTATIN CALCIUM 10 MG TAB PO SCH (20:13)
[2016-09-05] MEDS: oxyCODONE IR 5 MG TAB PO PRN ×5 (04:22→23:54)
[2016-09-05 05:22] LABS: ANION GAP 9 mEq/L (8-16); CALCIUM 9.2 mg/dL (8.5-10.4); CARBON DIOXIDE 29 mEq/l (22-31); CHLORIDE 95 mEq/L (97-110); CREATININE 1.2 mg/dL (0.7-1.3); GLOMERULAR FILTRATION RATE > 60; GLUCOSE 123 mg/dL (70-100); POTASSIUM 4.1 mEq/L (3.5-5.2); SODIUM 133 mEq/L (134-144)
[2016-09-05 05:28] LABS: INR 1.53 (0.83-1.16); PROTIME(PATIENT) 18.4 SEC (12.0-15.0)
--- NOTE | 2016-09-05 08:06 | SOAPPROG ---
SOAP Progress Note Assessment/Plan: Assessment: POD#5 CABG x 4 (KNAPP-LAD, free MICK-OM, SV-RCA, SV-PLC) Sx CAD w preserved LV systolic fx - s/p CABG with 2 arterial grafts. Stable postop course. Tubes and wire out. Actively diuresing volume overload. Secondary prevention w ASA, statin, and BB uptitrated as tolerated. Postoperative atrial fibrillation - Persistent POD#2 thru this am. Stable rate control on inc amio dosing and escalating BB. Antithrombotic prophylaxis with Coumadin to target INR 2-3. Duration 4-6 wks. Low dose lovenox bridge until INR > 1.7. Acute expected blood loss anemia - Stable. No transfusions required. H/H > 10/ 30. Stress hyperglycemia - Resolved. HTN - Home management with BB and ARB. Preferential use of BB for postop HR control. Metoprolol tartrate favored over (home) atenolol for ease of titration. Defer reinitiation of ARB to outpt f/u. BPH w LUTS of straining and nocturia - Asx on Rapaflo. No issues post sparrow removal. Plan: Cont Amio 400 mg BID thru discharge. Home on 200mg daily. Inc metoprolol tartrate 50 mg BID. Switch IV lasix to oral tomorrow. Wean O2. Inc activity. Dispo - Anticipate home tomorrow. 09/05/16 07:58 Subjective: Feels fine. Can tell that heart rate has slowed. Satisfactory analgesia. Small BM. Prepared for home tomorrow. Hopeful to be off O2. Objective: Vital Signs Temp Pulse Resp BP Pulse Ox 36.8 C 107 H 18 105/74 94 09/05/16 04:00 09/05/16 04:00 09/05/16 04:00 09/05/16 04:00 09/05/16 04:00 Laboratory Results 09/02/16 03:50 09/05/16 04:30 09/04/16 09/05/16 09/06/16 05:59 05:59 05:59 Intake Total 730 1320 Output Total 1025 3595 Balance -295 -1605 PT 18.4 SEC (12.0-15.0) H 09/05/16 04:30 INR 1.53 (0.83-1.16) H 09/05/16 04:30 Converted to SR ~6am. SBPs tolerant of aggressive diuresis and inc BB. Improving fluid balance, down to +3kg. CXR-> persistent left basilar atelectasis. INR beginning to rise. Physical Exam - Physical Exam General Appearance: alert, no apparent distress Respiratory: lungs clear Cardiac/Chest: regular rate, rhythm, other (Sternum grossly stable. Sternotomy, chest tube sites and LLE venotomy healing well.) Abdomen: non-tender, soft Skin: warm/dry Extremities: swelling (1+ dependent, vein donor leg only) ICD10 Worksheet Patient Problems: Problems Problem Status Onset Acute blood loss anemia Acute Benign essential HTN Acute CAD, multiple vessel Acute Crescendo angina Acute Dyslipidemia Acute Postoperative atrial fibrillation Acute S/P CABG x 4 Acute 08/31/16
[2016-09-05] MEDS ORDERED: FUROSEMIDE 100 MG/10 ML VIAL IVP ONE (09:00)
[2016-09-05] MEDS: SENNOSIDES/DOCUSATE SODIUM TAB PO SCH ×2 (09:12→21:19)
[2016-09-05] MEDS: METOPROLOL TARTRATE 25 MG TAB PO SCH (09:13)
[2016-09-05] MEDS: ENOXAPARIN 30 MG/0.3 ML SYR SC SCH ×2 (09:17→21:22)
[2016-09-05] MEDS: AMIODARONE HCL 200 MG TAB PO SCH ×2 (09:18→21:18)
[2016-09-05] MEDS: FAMOTIDINE 20 MG TAB PO SCH (09:18)
[2016-09-05] MEDS: ASPIRIN EC 81 MG TAB PO SCH (09:18)
[2016-09-05] MEDS: MULTIVITAMINS 1 EACH TAB PO SCH (09:18)
[2016-09-05] MEDS: POLYETHYLENE GLYCOL 3350 17 GM PKT PO SCH (09:23)
[2016-09-05] MEDS: BISACODYL 10 MG SUPP PR PRN (15:18)
[2016-09-05] MEDS ORDERED: WARFARIN SODIUM 5 MG TAB PO ONE (16:00)
[2016-09-05] MEDS: METOPROLOL TARTRATE 50 MG TAB PO SCH (21:18)
[2016-09-05] MEDS: ATORVASTATIN CALCIUM 10 MG TAB PO SCH (21:18)
[2016-09-05] MEDS ORDERED: ALTEPLASE 2 MG VIAL IVP PRN (22:12)
[2016-09-06] MEDS: oxyCODONE IR 5 MG TAB PO PRN ×2 (05:30→11:12)
[2016-09-06] MEDS: FAMOTIDINE 20 MG TAB PO SCH (05:56)
[2016-09-06 05:58] LABS: INR 2.39 (0.83-1.16); PROTIME(PATIENT) 26.3 SEC (12.0-15.0)
[2016-09-06] MEDS: SENNOSIDES/DOCUSATE SODIUM TAB PO SCH ×2 (09:23→20:45)
[2016-09-06] MEDS: ASPIRIN EC 81 MG TAB PO SCH (09:24)
[2016-09-06] MEDS: AMIODARONE HCL 200 MG TAB PO SCH ×2 (09:24→20:45)
[2016-09-06] MEDS: APIXABAN 5 MG TAB PO SCH ×2 (09:24→20:45)
[2016-09-06] MEDS: MULTIVITAMINS 1 EACH TAB PO SCH (09:24)
[2016-09-06] MEDS: METOPROLOL TARTRATE 50 MG TAB PO SCH ×2 (09:24→20:45)
[2016-09-06] MEDS: POLYETHYLENE GLYCOL 3350 17 GM PKT PO SCH (09:25)
--- NOTE | 2016-09-06 09:25 | SOAPPROG ---
SOAP Progress Note Assessment/Plan: Assessment: POD#6 CABG x 4 (KNAPP-LAD, free MICK-OM, SV-RCA, SV-PLC) Sx CAD w preserved LV systolic fx - s/p CABG with 2 arterial grafts. Stable early postop course. No vasoactive support, arrhythmia, tachycardia or backup pacing. Secondary prevention w ASA, BB,statin. - Stable Postoperative atrial fibrillation with conversion to SR - Amiodarone/metoprolol - Eliquis for thromboprophylaxis - will obtain EKG on f/u appt and will decide duration of AC then Acute expected blood loss anemia - Stable. No transfusions required. Stress hyperglycemia - Preop A1c of 6%. Postop hyperglycemia managed with low dose insulin gtt/SSI. Will suspend monitoring. HTN - Home management with BB and ARB. BPH w LUTS of straining and nocturia - Asx on Rapaflo. Home dose restarted. No voiding difficulties post sparrow removal. 09/06/16 09:22 Subjective: Feels well. Ready to go home. Objective: Vital Signs Temp Pulse Resp BP Pulse Ox 37.2 C 68 20 101/65 96 09/06/16 06:58 09/06/16 06:58 09/06/16 06:58 09/06/16 06:58 09/06/16 06:58 Laboratory Results 09/02/16 03:50 09/06/16 05:30 09/05/16 09/06/16 09/07/16 05:59 05:59 05:59 Intake Total 1320 1400 Output Total 2925 1770 700 Balance -1605 -370 -700 PT 26.3 SEC (12.0-15.0) H 09/06/16 05:30 INR 2.39 (0.83-1.16) H 09/06/16 05:30 Physical Exam - Physical Exam General Appearance: WD/WN, alert, no apparent distress EENT: No scleral icterus (R), No scleral icterus (L) Neck: normal inspection Respiratory: No respiratory distress Cardiac/Chest: regular rate, rhythm, extra beats Abdomen: non-tender, soft, No distended Skin: normal color, warm/dry Extremities: No pedal edema Neuro/Psych: no motor/sensory deficits, alert, normal mood/affect, oriented x 3 ICD10 Worksheet Patient Problems: Problems Problem Status Onset Acute blood loss anemia Acute Benign essential HTN Acute CAD, multiple vessel Acute Crescendo angina Acute Dyslipidemia Acute Postoperative atrial fibrillation Acute S/P CABG x 4 Acute 08/31/16
[2016-09-06] MEDS: MAGNESIUM HYDROXIDE 30 ML UDCUP PO PRN (09:28)
[2016-09-06] MEDS: ACETAMINOPHEN 325 MG TAB PO PRN ×3 (12:28→23:16)
[2016-09-06] MEDS: ONDANSETRON 4 MG/2 ML VIAL IVP PRN (14:20)
[2016-09-06] MEDS ORDERED: METHYLNALTREXONE BROMIDE 12 MG/0.6 ML INJ SC ONE (17:05)
[2016-09-06] MEDS ORDERED: KETOROLAC 30 MG/1 ML SDV IVP PRN (18:00)
[2016-09-06] MEDS: ATORVASTATIN CALCIUM 10 MG TAB PO SCH (20:45)
[2016-09-07] MEDS: ONDANSETRON 4 MG/2 ML VIAL IVP PRN (04:21)
[2016-09-07] MEDS: ACETAMINOPHEN 325 MG TAB PO PRN ×2 (06:50→09:47)
[2016-09-07] MEDS: APIXABAN 5 MG TAB PO SCH (07:47)
[2016-09-07] MEDS: ASPIRIN EC 81 MG TAB PO SCH (07:47)
[2016-09-07] MEDS: METOPROLOL TARTRATE 50 MG TAB PO SCH (07:47)
[2016-09-07] MEDS: AMIODARONE HCL 200 MG TAB PO SCH (07:47)
[2016-09-07] MEDS: SENNOSIDES/DOCUSATE SODIUM TAB PO SCH (07:48)
[2016-09-07] MEDS: MULTIVITAMINS 1 EACH TAB PO SCH (07:48)
[2016-09-07] MEDS: POLYETHYLENE GLYCOL 3350 17 GM PKT PO SCH (07:48)
[2016-09-07 08:13] VITALS: BP 125/70; PULSE 71; RESP 18; TEMP 98.3; O2SAT 94
--- NOTE | 2016-09-07 08:25 | SOAPPROG ---
SOAP Progress Note Assessment/Plan: Assessment: POD#7 CABG x 4 (KNAPP-LAD, free MICK-OM, SV-RCA, SV-PLC) Sx CAD w preserved LV systolic fx - s/p CABG with 2 arterial grafts. Stable postop course. Tubes and wire out. Actively diuresing volume overload. Secondary prevention w ASA, statin, and BB uptitrated as tolerated. Postoperative atrial fibrillation - Persistent POD#2-5. Stable rate control on inc amio dosing and escalating BB. Amio reduced to maintenance dose without recurrent arrhythmia. Antithrombotic prophylaxis converted to Eliquis x 4-6 weeks. Acute expected blood loss anemia - Stable. No transfusions required. H/H > 10/ 30. Stress hyperglycemia - Resolved. HTN - Home management with BB and ARB. Preferential use of BB for postop HR control. Metoprolol tartrate favored over (home) atenolol for ease of titration. Defer reinitiation of ARB to outpt f/u. BPH w LUTS of straining and nocturia - Asx on Rapaflo. No issues post sparrow removal. Postop ileus - Secondary to narcotic use. Resolved with restricted diet, Relistor, and narc holiday. Plan: Ok for discharge. Instructions re diet, meds, activity, wound care and f/u reviewed in presence of . 09/07/16 08:21 Subjective: Doing ok. Now with diarrhea but belly no longer bloated and nausea resolved. Tolerating CLs and would like to go home. Objective: Vital Signs Temp Pulse Resp BP Pulse Ox 36.8 C 71 18 125/70 H 94 09/07/16 08:00 09/07/16 08:00 09/07/16 08:00 09/07/16 08:00 09/07/16 08:00 Laboratory Results 09/02/16 03:50 09/06/16 05:30 09/06/16 09/07/16 09/08/16 05:59 05:59 05:59 Intake Total 1400 200 Output Total 1770 1300 Balance -370 -1100 PT 26.3 SEC (12.0-15.0) H 09/06/16 05:30 INR 2.39 (0.83-1.16) H 09/06/16 05:30 Discharge yesterday postponed for bloated belly, nausea and Abd xray c/w ileus. Sig expression of gas and stool following Relistor. Holding SR. Approaching preop wt. Suppl O2 req 1-2Lpm. Physical Exam - Physical Exam General Appearance: alert, no apparent distress Respiratory: lungs clear Cardiac/Chest: regular rate, rhythm, other (Stenum grossly stable. Sternotomy and LLE venotomy CDI) Abdomen: non-tender, soft, other (hyperactive BS) Skin: warm/dry Extremities: swelling (1+ dep, vein donor leg only) ICD10 Worksheet Patient Problems: Problems Problem Status Onset Acute blood loss anemia Acute Benign essential HTN Acute CAD, multiple vessel Acute Crescendo angina Acute Dyslipidemia Acute Postoperative atrial fibrillation Acute S/P CABG x 4 Acute 08/31/16
[2016-09-07] MEDS ORDERED: PNEUMOCOCCAL 0.5ML VACCINE VIAL IM ONE (08:54)
--- NOTE | 2016-09-07 18:40 | PDDCSUM ---
Discharge Summary Discharge Summary: DATE OF ADMISSION: 08/30/16 DATE OF DISCHARGE: 09/07/16 DISPOSITION: Home, self-care PRINCIPAL ADMISSION DIAGNOSIS: Crescendo angina PRINCIPAL DISCHARGE DIAGNOSES: 1. Severe multivessel coronary artery disease 2. LV diastolic dysfunction 3. Mild carotid atherosclerosis 4. Status post coronary artery bypass grafting x 4 5. Acute expected blood loss anemia 6. Postoperative atrial fibrillation 7. Postoperative ileus HISTORY OF PRESENT ILLNESS: 61 yo hypertensive, dyslipidemic male with increasing frequency of exertional chest pains and early positive GXT admitted for elective cardiac catheterization. PERTINENT PAST MEDICAL HISTORY: HTN, Hyperlipidemia, BPH with LUTS of straining and nocturia, GERD MEDICATIONS ON ADMISSION: ASA 81 mg daily, Cozaar 50 mg 2 tabs daily, Atenolol 100 mg daily, Simvastatin 20 mg hs, MVI one tab daily, Pepcid 20mg daily, Rapaflo 8 mg daily. 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 Access via left radial artery. 08/30 Carotid ultrasound 08/30 ([facility]): Transthoracic echocardiogram 08/31 ([facility]): Coronary artery bypass grafting x 4 (KNAPP-LAD, free MICK-OM, SV- PLC, SV-RCA). Takedown bilateral internal mammary arteries. Endoscopic vein harvest left lower leg. ABBREVIATED HOSPITAL COURSE: Found to have severe multivessel CAD with moderate LVDD (EDP 31) and referred for surgical revascularization. Preop imaging notable for anterolateral and inferobasilar hypokinesis w LVEF 55%, mild MR, mild AI, and mild plaquing of bilateral carotid bulbs. Taken to the OR on hospital day #2. 4 vessel CABG completed with 2 arterial grafts and no apparent complications. Target vessels measured between 1.5 and 2.25 mm in diameter. Easily from CPB with preserved LV systolic fx and trace valvular insufficiency. Transferred to the ICU in hemodynamically stable condition without need for vasoactive support, backup pacing, blood or blood products. Postop course remarkable for persistent AF between POD#2-5 and narcotic induced ileus. AFib ultimately responsive to high dose Amiodarone and escalating beta blockade. Initially anticoagulated with Coumadin for [id number] score of 2, however switched to Eliquis once INR therapeutic as holding SR, resolving fluid overload, and no underlying atrial enlargement or valvular concerns. Ileus attributed to heavy narcotic use while pleural tubes in place and to subjective "low pain tolerance". Resolution of abdominal bloating and nausea achieved with restricted diet, narcotic holiday, and Relistor. DISCHARGE CLINICAL INFORMATION: Sternum grossly stable. Sternotomy and LLE venotomy CDI, sutured, +Dermabond. SBP 110s-120s. HR 60s-80s. SpO2 86% RA, correcting to 91-94% on 2 LPM O2. Wt 1.2 kg above admission at 125.6 kilos. WBC 9.3, Hgb 12, HCT 35, Plt 98, INR 2.4, K 4, Cr 1.2 DISCHARGE MEDICATIONS: As on admission with the following adjustments: Atenolol held. Cozaar held. NEW prescriptions: Eliquis 5 mg BID x 1 month or as directed by cardiology. Amiodarone 200 mg BID x 3 weeks. Metoprolol 50 mg BID. Dyazide 37.5/25 one tab daily, beginning 09/08, until back to baseline weight and no swelling. Vicodin 5/325 1/2-2 tabs q 4-6 hrs prn moderate to severe incisional discomfort. Oxycodone IR 5 mg q 6-8hrs prn severe breakthrough discomfort. Oxygen @ 1 Lpm rest and 2 Lpm activity or as directed by SpO2. OTC: Tylenol 325 mg 1-2 tabs q 4h prn mild incisional discomfort. Max daily limit Tylenol 3,000 mg. FOLLOW UP APPOINTMENTS: 1. Cardiology: with Dr Das at [facility] within 4-6 wks. Appointment to be established during surgical visit. 2. CV surgery: with Dr See at [facility] on 09/18 at 9:30am FOLLOWUP TESTING: CXR prior to surgical appointment.
== END 2016-09-07 10:45 | disposition home or self-care (01) | DRG 234 ==
LOC: FCATH 06:33 → F2W 14:25 → F2N 08-31 10:36 → F2W 09-01 18:38
PROVIDERS: ADMIT Thoracic Surgery (Cardiothoracic Vascular Surgery); ATTEND Thoracic Surgery (Cardiothoracic Vascular Surgery)
PROC: B2111ZZ Fluoroscopy of Multiple Coronary Arteries using Low Osmolar Contrast (ICD-10-PCS; 2016-08-30)
PROC: 4A023N7 Measurement of Cardiac Sampling and Pressure, Left Heart, Percutaneous Approach (ICD-10-PCS; 2016-08-30)
PROC: B2151ZZ Fluoroscopy of Left Heart using Low Osmolar Contrast (ICD-10-PCS; 2016-08-30)
PROC: 5A1221Z Performance of Cardiac Output, Continuous (ICD-10-PCS; principal; 2016-08-31 11:55)
PROC: 02100Z8 Bypass Coronary Artery, One Artery from Right Internal Mammary, Open Approach (ICD-10-PCS; principal; 2016-08-31 11:55)
PROC: 02100Z9 Bypass Coronary Artery, One Artery from Left Internal Mammary, Open Approach (ICD-10-PCS; principal; 2016-08-31 11:55)
PROC: 021009W Bypass Coronary Artery, One Artery from Aorta with Autologous Venous Tissue, Open Approach (ICD-10-PCS; principal; 2016-08-31 11:55)
PROC: 06BQ4ZZ Excision of Left Saphenous Vein, Percutaneous Endoscopic Approach (ICD-10-PCS; principal; 2016-08-31 11:55)
DX: I25.110 Atherosclerotic heart disease of native coronary artery with unstable angina pectoris (principal); D62 Acute posthemorrhagic anemia; I48.91 Unspecified atrial fibrillation; K56.7 Ileus, unspecified; I65.29 Occlusion and stenosis of unspecified carotid artery; I10 Essential (primary) hypertension; E78.5 Hyperlipidemia, unspecified; K21.9 Gastro-esophageal reflux disease without esophagitis; N40.1 Benign prostatic hyperplasia with lower urinary tract symptoms; R39.16 Straining to void; R35.1 Nocturia
CPT/HCPCS: 82947-QW; 92610-GN; 97116-GP; 97161-GP; 97165-GO; 97530-GO; 97530-GP; 97535-GO; G0009; J0153; J0282; J0690; J1100; J1170; J1265; J1644; J1650; J1815; J2001; J2150; J2250; J2260; J2370; J2405; J2440; J2704; J2720; J2765; J2930; J2997; J3010; J3370; J7060; P9041; Q9967

== ENCOUNTER → 2016-09-18 | Outpatient (CLI) | payer OTHER | LOC: FIMAGING 10:20 | PROVIDERS: ATTEND Thoracic Surgery (Cardiothoracic Vascular Surgery) | DX: Z09 Encounter for follow-up examination after completed treatment for conditions other than malignant neoplasm (principal); J90 Pleural effusion, not elsewhere classified ==

== ENCOUNTER 2016-10-07 20:56 | Emergency (ER) | payer OTHER ==
[2016-10-07 21:03] VITALS: TEMP 99; O2SAT 96
--- NOTE | 2016-10-07 21:29 | CPEKG ---
Heart Rate: 111 RR Interval: 541 QRSD Interval: 96 QT Interval: 360 QTC Interval: 489 QRS [place]: 12 T Wave [place]: 115 EKG Severity - ABNORMAL ECG - EKG Impression: ATRIAL FIBRILLATION EKG Impression: PROBABLE INFERIOR INFARCT, AGE INDETERMINATE EKG Impression: LATERAL LEADS ARE ALSO INVOLVED EKG Impression: BORDERLINE PROLONGED QT INTERVAL Electronically Signed By: Herber Rick 07-Oct-2016 22:40:35
--- NOTE | 2016-10-07 21:35 | EDPHY ---
H & P Stated Complaint: "racing heart rate" Time Seen by Provider: 10/07/16 21:34 - Personal History Current Tetanus/Diphtheria Vaccine: Yes Current Tetanus Diphtheria and Acellular Pertussis (TDAP): Yes - Medical/Surgical History Hx Asthma: No Hx Chronic Respiratory Disease: No Hx Diabetes: No Hx Cardiac Disease: Yes Hx Renal Disease: No Hx Cirrhosis: No Hx Alcoholism: No Hx HIV/AIDS: No Hx Splenectomy or Spleen Trauma: No Other PMH: bypass sx aug 31 2016, afib, - Social History Smoking Status: Never smoked Constitutional: Initial Vital Signs Temperature (C) 37.2 C 10/07/16 20:59 Heart Rate 120 H 10/07/16 20:59 Respiratory Rate 18 10/07/16 20:59 Blood Pressure 133/89 H 10/07/16 20:59 O2 Sat (%) 96 10/07/16 20:59 O2 Delivery Mode Room Air O2 (L/minute) 2 Allergies/Adverse Reactions: amlodipine Allergy (Verified 08/30/16 15:09) Other-Enter Comments Home Medications: Medication Instructions Recorded Famotidine [Pepcid 20 MG (*)] 20 mg PO DAILY 08/30/16 Multivitamins [Multivitamin (*)] 1 each PO DAILY 08/30/16 Silodosin [RAPAFLO] 8 mg PO DAILY 08/30/16 Simvastatin 20 mg PO HS 08/30/16 Acetaminophen [Tylenol 325mg (*)] 325 - 650 mg PO Q4HRS PRN #0 tab 09/06/16 Apixaban [Eliquis] 5 mg PO BID #60 tab 09/06/16 Aspirin EC [Aspirin EC 81 mg (*)] 81 mg PO DAILY #0 tab 09/06/16 Metoprolol Tartrate [Lopressor 50 50 mg PO BID #60 tab 09/06/16 mg (*)] Hydrocodone/Acetaminophen 1 each PO Q4-6PRN PRN #40 tablet 09/07/16 [Hydrocodon-Acetaminophen 5-325] Amiodarone HCl 200 mg PO BID #60 tablet 10/07/16 Apixaban [Eliquis] 5 mg PO BID #60 tab 10/07/16 Losartan Potassium 10/07/16 Metoprolol Succinate Xr [Toprol Xl 50 mg PO BID #60 tab.sr 10/07/16 50 mg (*)] Metoprolol Tartrate [Lopressor 50 50 mg PO BID #60 tab 10/07/16 mg (*)] Medical Decision Making ED Course/Re-evaluation: CHIEF COMPLAINT: Racing heart rate HISTORY OF PRESENT ILLNESS: The patient is an anticoagulated 61 y/o male arriving with his complaining of heart palpitations and "fluttering" onset this evening. He had a quadruple CABG 5 weeks ago here and has had a largely unremarkable recovery so far. About 4 days ago he felt vague malaise that seemed to resolve until tonight, when he developed a racing heart rate after returning home from his kid's baseball game. He is due for his last dose of Eliquis tonight and took his last dose of metoprolol this morning. He already completed his amiodarone one week ago. He denies chest pain or dyspnea. REVIEW OF SYSTEMS: A 10 point review of systems was performed and is negative with the exception of the elements mentioned in the history of present illness. PHYSICAL EXAM: HR, BP, O2 Sat, RR. Temp noted General Appearance: Alert, well hydrated, appropriate, and non-toxic appearing. Head: Atraumatic without scalp tenderness or obvious injury Eyes: Pupils equal, round, reactive to light and accommodation, EOMI, no trauma , no injection. Ears: Clear bilaterally, no perforation, normal landmarks Nose: Atraumatic, no rhinorrhea, clear. Throat: There is no erythema or exudates, no lesions, normal tonsils, mucus membranes moist. Neck: Supple, nontender, no lymphadenopathy. Respiratory: No retractions, no distress, no wheezes, and no accessory muscle use. Lungs are clear to auscultation bilaterally. Cardiovascular: Irregularly irregular rapid rate and rhythm, no murmurs, rubs, or gallops. Good capillary refill all extremities. Gastrointestinal: Abdomen is soft, nontender, non-distended, no masses, no rebound, no guarding, no peritoneal signs. Musculoskeletal: Normal active ROM of all extremities, atraumatic. Bilateral pedal edema, worse on left, though patient attributes this to gout. Neurological: Alert, appropriate, and interactive. The patient has normal DTRs and non-focal cranial nerves, motor, sensory, and cerebellar exam. Skin: No rashes, good turgor, no nodules on palpation. Midline healing sternal incision is clean, dry, and intact, without evidence of infection. Past medical history: Hypertension, hyperlipidemia, gout, CAD Past surgical history: CABG x4 08/31/16 Dr. Zaragoza Family history: noncontributory Social history: at bedside. 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 Das Reviewed prior medical records including discharge summary from CABG on 09/07/16. DIAGNOSTICS/PROCEDURES/CRITICAL CARE TIME: The 12 lead EKG was interpreted by myself. Atrial fibrillation rate 111. See hard copy and/or "tracemaster" electronic copy for interpretation. DIFFERENTIAL DIAGNOSIS: The differential diagnosis for the patient's narrow complex tachycardia included but was not limited to post-surgical atrial fibrillation, various causes of sinus tachycardia such as dehydration and medicines, SVT, atrial flutter, pulmonary causes. MEDICAL DECISION MAKING: This is a 61 y/o male who underwent a CABG x4 about 5 weeks ago and developed palpitations tonight. He recently ended his course of amiodarone and metoprolol and is about to finish his Eliquis. He does not have chest pain or dyspnea. He is scheduled to follow up with Dr. Das this Saturday. Troponin is negative. Small bump in his BNP, but labs are otherwise unremarkable. 2152: Consulted with Dr. Hickman, director of maternity services. She agrees that it's common to have atrial fibrillation following his surgery. She recommends restarting him on all three medications that have lapsed: 5mg BID Eliquis, 200mg BID amiodarone , and 50mg BID metoprolol. He will receive a dose of amiodarone and metoprolol here before discharge as he has one dose of Eliquis remaining. I discussed this with the patient. He is comfortable with this plan. Return precautions given. - Data Points Laboratory Results: Laboratory Results 10/07/16 21:20 10/07/16 21:20 10/07/16 10/07/16 10/07/16 21:20 21:20 21:20 WBC 4.04 10^3/uL 10^3/uL (3.80-9.50) RBC 3.87 10^6/uL L 10^6/uL (4.40-6.38) Hgb 12.1 g/dL L g/dL (13.7-17.5) Hct 36.6 % L % (40.0-51.0) MCV 94.6 fL fL (81.5-99.8) MCH 31.3 pg pg (27.9-34.1) MCHC 33.1 g/dL g/dL (32.4-36.7) RDW 13.8 % % (11.5-15.2) Plt Count 156 10^3/uL 10^3/uL (150-400) MPV 9.7 fL fL (8.7-11.7) Neut % (Auto) 69.3 % % (39.3-74.2) Lymph % (Auto) 17.6 % % (15.0-45.0) [place] % (Auto) 8.2 % % (4.5-13.0) Eos % (Auto) 4.5 % % (0.6-7.6) Baso % (Auto) 0.2 % L % (0.3-1.7) Nucleat RBC Rel Count 0.0 % % (0.0-0.2) Absolute Neuts (auto) 2.80 10^3/uL 10^3/uL (1.70-6.50) Absolute Lymphs (auto) 0.71 10^3/uL L 10^3/uL (1.00-3.00) Absolute Monos (auto) 0.33 10^3/uL 10^3/uL (0.30-0.80) Absolute Eos (auto) 0.18 10^3/uL 10^3/uL (0.03-0.40) Absolute Basos (auto) 0.01 10^3/uL L 10^3/uL (0.02-0.10) Absolute Nucleated RBC 0.00 10^3/uL 10^3/uL (0-0.01) Immature Gran % 0.2 % % (0.0-1.1) Immature Gran # 0.01 10^3/uL 10^3/uL (0.00-0.10) PT 14.5 SEC SEC (12.0-15.0) INR 1.14 (0.83-1.16) APTT 34.2 SEC SEC (23.0-38.0) Sodium 140 mEq/L mEq/L (134-144) Potassium 4.2 mEq/L mEq/L (3.5-5.2) Chloride 105 mEq/L mEq/L (97-110) Carbon Dioxide 24 mEq/l mEq/l (22-31) Anion Gap 11 mEq/L mEq/L (8-16) BUN 18 mg/dL mg/dL (7-23) Creatinine 1.1 mg/dL mg/dL (0.7-1.3) Estimated GFR > 60 Glucose 141 mg/dL H mg/dL (70-100) Calcium 10.1 mg/dL mg/dL (8.5-10.4) Magnesium 2.0 mg/dL mg/dL (1.6-2.3) Troponin I < 0.012 ng/mL ng/mL (0-0.034) NT-Pro-B Natriuret Pep 374 pg/mL H pg/mL (0-125) Departure - Departure Disposition: Home, Routine, Self-Care Clinical Impression: post surgical Atrial fibrillation Qualifiers: Atrial fibrillation type: paroxysmal Qualified Code(s): I48.0 - Paroxysmal atrial fibrillation Condition: Good Instructions: A-fib (Atrial Fibrillation) (ED) Additional Instructions: 1. Take 5mg Eliquis twice daily as prescribed. 2. Take 50mg Metoprolol twice daily as prescribed. 3. Take 200mg Amiodarone twice daily as prescribed. 4. Follow up with Dr. Das on Saturday as scheduled. 5. Return to the ED for chest pain, shortness of breath, or any other worsening of condition. Referrals: Inderjit Torres MD [Primary Care Provider] - As per Instructions Rick Das MD [Medical Doctor] - As per Instructions Prescriptions: Amiodarone HCl 200 mg PO BID #60 tablet Apixaban [Eliquis] 5 mg PO BID #60 tab Metoprolol Succinate Xr [Toprol Xl 50 mg (*)] 50 mg PO BID #60 tab.sr Metoprolol Tartrate [Lopressor 50 mg (*)] 50 mg PO BID #60 tab Report Scribed for: Herber Rick Report Scribed by: Chasity Martinez Date of Report: 10/07/16 Time of Report: 21:58
[2016-10-07 21:42] LABS: % IMMATURE GRANULYOCYTES 0.2 % (0.0-1.1); ABSOLUTE IMMATURE GRANULOCYTES 0.01 10^3/uL (0.00-0.10); ADD DIFF? NO; ADD MORPH? NO; ADD SCAN? NO; ATYPICAL LYMPHOCYTE FLAG 0 (0-99); FRAGMENT RBC FLAG 0 (0-99); HEMATOCRIT 36.6 % (40.0-51.0); HEMOGLOBIN 12.1 g/dL (13.7-17.5); LEFT SHIFT FLG 0 (0-99); LIPEMIA HEMOLYSIS FLAG 80 (0-99); MEAN CELL HEMOGLOBIN 31.3 pg (27.9-34.1); MEAN CELL HEMOGLOBIN CONCENTR. 33.1 g/dL (32.4-36.7); MEAN CELL VOLUME 94.6 fL (81.5-99.8); MEAN PLATELET VOLUME 9.7 fL (8.7-11.7); PLATELET CLUMPS FLAG 40 (0-99); PLATELET COUNT 156 10^3/uL (150-400); RED BLOOD CELL COUNT 3.87 10^6/uL (4.40-6.38); RED CELL DISTRIBUTION WIDTH 13.8 % (11.5-15.2)
[2016-10-07 21:48] LABS: INR 1.14 (0.83-1.16); PROTIME(PATIENT) 14.5 SEC (12.0-15.0)
[2016-10-07 21:49] LABS: APTT 34.2 SEC (23.0-38.0)
[2016-10-07 21:53] LABS: ANION GAP 11 mEq/L (8-16); CALCIUM 10.1 mg/dL (8.5-10.4); CARBON DIOXIDE 24 mEq/l (22-31); CHLORIDE 105 mEq/L (97-110); CREATININE 1.1 mg/dL (0.7-1.3); GLOMERULAR FILTRATION RATE > 60; GLUCOSE 141 mg/dL (70-100); POTASSIUM 4.2 mEq/L (3.5-5.2); SODIUM 140 mEq/L (134-144)
[2016-10-07 22:05] LABS: TROPONIN I < 0.012 ng/mL (0-0.034)
[2016-10-07] MEDS ORDERED: METOPROLOL TARTRATE 50 MG TAB PO ONE (22:10)
[2016-10-07] MEDS ORDERED: AMIODARONE HCL 200 MG TAB PO ONE (22:10)
[2016-10-07 22:21] VITALS: BP 118/85; PULSE 93; RESP 16
== END 2016-10-07 22:31 | disposition home or self-care (01) ==
DX: I48.0 Paroxysmal atrial fibrillation (principal); I10 Essential (primary) hypertension; I25.810 Atherosclerosis of coronary artery bypass graft(s) without angina pectoris; Z79.82 Long term (current) use of aspirin

== ENCOUNTER → 2016-10-08 | Outpatient (CLI) | payer OTHER | LOC: BMCIMAGING 12:03 | PROVIDERS: ATTEND Internal Medicine | DX: M79.671 Pain in right foot (principal) ==